=== PATIENT | female | born 2000 | race Caucasian/White ===

== ENCOUNTER 2021-03-20 09:43 | Emergency (ER) | payer OTHER ==
--- NOTE | 2021-03-20 10:01 | ED Physician Documentation ---
PD HPI ABD PAIN - Stated complaint Stated Complaint: ABDOMINAL PX - Chief complaint Chief Complaint: Abd Pain - History obtained from History obtained from: Patient - History of Present Illness Timing - onset: How many weeks ago (1) Timing - duration: Weeks (1) Timing - details: Abrupt onset, Still present, Waxing and waning Quality: Cramping, Aching, Pain Location: Epigastric, LUQ Radiation: No: Chest, Lower back, Left flank Improved by: No: Eating, BM Worsened by: Eating Associated symptoms: Nausea, Diarrhea (had diarrhea a week ago and then again last night. Formed stool couple of times in the interim. No noted blood nor melena.), Loss of appetite (the past week). No: Fever, Vomiting, Melena, Dysuria Similar symptoms before: Has not had sx before Recently seen: Not recently seen Review of Systems Constitutional: reports: Myalgias (some aches and joint pains generally the past week. No URI symptoms.). denies: Fever, Chills Nose: denies: Congestion Throat: denies: Sore throat Respiratory: denies: Cough GI: reports: Abdominal Pain, Nausea, Diarrhea. denies: Vomiting, Constipation, Hematemesis, Bloody / black stool : denies: Dysuria, Discharge, Irregular menses Skin: denies: Rash, Lesions Neurologic: reports: Generalized weakness. denies: Near syncope, Altered mental status, Headache PD PAST MEDICAL HISTORY - Past Medical History Cardiovascular: None Respiratory: None Endocrine/Autoimmune: None GI: None - Present Medications Home Medications: Ambulatory Orders Medication Instructions Recorded Confirmed HYDROcod/ACETAM 5/325 [[place] 5/325] 1 ea PO Q6H PRN #12 tablet 03/20/21 Loperamide [Imodium] 2 mg PO QID PRN #12 cap 03/20/21 Ondansetron Odt [Zofran] 4 mg TL Q6H PRN #10 tablet 03/20/21 - Allergies Allergies/Adverse Reactions: Allergies Allergy/AdvReac Type Severity Reaction Status Date / Time No Known Drug Allergies Allergy Verified 03/20/21 09:51 PD ED PE NORMAL - Vitals Vital signs reviewed: Yes - General General: Alert and oriented X 3, No acute distress, Well developed/nourished - HEENT HEENT: Pharynx benign. No: Moist mucous membranes - Neck Neck: Supple, no meningeal sign, No adenopathy - Cardiac Cardiac: RRR, No murmur - Respiratory Respiratory: Clear bilaterally - Abdomen Abdomen: Normal bowel sounds, Soft, Non distended, No organomegaly, Other (tender left upper to mid abdomen. Not tender lower abd. No percussion tenderness. ) - Female Female : Deferred - Rectal Rectal: Deferred - Back Back: No CVA TTP - Derm Derm: Normal color, Warm and dry - Extremities Extremities: No edema - Neuro Neuro: Alert and oriented X 3, No motor deficit, Normal speech Results - Vitals Vitals: Vital Signs - 24 hr 03/20/21 03/20/21 09:51 11:53 Temperature 36.7 C Heart Rate 95 79 Respiratory 18 17 Rate Blood Pressure 131/71 H 123/81 H O2 Saturation 99 100 Oxygen O2 Source Room air - Labs Labs: Laboratory Tests 03/20/21 03/20/21 03/20/21 10:00 10:00 10:00 WBC 6.4 RBC 4.91 Hgb 15.5 Hct 44.8 MCV 91.2 MCH 31.6 H MCHC 34.6 RDW 12.9 Plt Count 303 MPV 8.6 Neut # (Auto) 4.3 Lymph # (Auto) 1.6 [place] # (Auto) 0.4 Eos # (Auto) 0.1 Baso # (Auto) 0.0 Absolute Nucleated RBC 0.00 Nucleated RBC % 0.0 Sodium 135 Potassium 3.9 Chloride 104 Carbon Dioxide 21 Anion Gap 10.0 BUN 12 Creatinine 0.6 Estimated GFR (MDRD) 126 Glucose 97 Calcium 9.3 Total Bilirubin 0.8 AST 30 ALT 24 Alkaline Phosphatase 79 Total Protein 8.1 Albumin 4.9 Globulin 3.2 Albumin/Globulin Ratio 1.5 Lipase 44 Urine Color STRAW Urine Clarity CLEAR Urine pH 6.0 Ur Specific [place] <=1.005 Urine Protein NEGATIVE Urine Glucose (UA) NEGATIVE Urine Ketones NEGATIVE Urine Occult Blood SMALL H Urine Nitrite NEGATIVE Urine Bilirubin NEGATIVE Urine Urobilinogen 0.2 (NORMAL) Ur Leukocyte Esterase NEGATIVE Urine RBC 6-10 H Urine WBC 0-3 Ur Squamous Epith Cells MOD Squamous H Urine Bacteria Moderate H Ur Microscopic Review INDICATED Urine Culture Comments NOT INDICATED Urine HCG, Qual 03/20/21 10:04 WBC RBC Hgb Hct MCV MCH MCHC RDW Plt Count MPV Neut # (Auto) Lymph # (Auto) [place] # (Auto) Eos # (Auto) Baso # (Auto) Absolute Nucleated RBC Nucleated RBC % Sodium Potassium Chloride Carbon Dioxide Anion Gap BUN Creatinine Estimated GFR (MDRD) Glucose Calcium Total Bilirubin AST ALT Alkaline Phosphatase Total Protein Albumin Globulin Albumin/Globulin Ratio Lipase Urine Color Urine Clarity Urine pH Ur Specific [place] Urine Protein Urine Glucose (UA) Urine Ketones Urine Occult Blood Urine Nitrite Urine Bilirubin Urine Urobilinogen Ur Leukocyte Esterase Urine RBC Urine WBC Ur Squamous Epith Cells Urine Bacteria Ur Microscopic Review Urine Culture Comments Urine HCG, Qual NEGATIVE - Rads (name of study) abd/pelvic CT Radiology: Prelim report reviewed (no evidence of acute abdominal process. ), See rad report PD MEDICAL DECISION MAKING - ED course Complexity details: reviewed results, re-evaluated patient, considered differential (not tender in appendix area nor RUQ. Sounds intenstinal. No dysuria. Can check labs and UA, but also stool sample if goes here. Will get CT abd. Meanwhile to give fluids and meds. ), d/w patient Departure - Departure Disposition: Home, Self Care Clinical Impression: Abdominal pain Qualifiers: Abdominal location: left upper quadrant Qualified Code(s): R10.12 - Left upper quadrant pain Condition: Stable Record reviewed to determine appropriate education?: Yes Instructions: Abdominal Pain Follow-Up: TEMO BUSH DO [Primary Care Provider] - Prescriptions: Loperamide [Imodium] 2 mg PO QID PRN #12 cap PRN Reason: Diarrhea HYDROcod/ACETAM 5/325 [[place] 5/325] 1 ea PO Q6H PRN #12 tablet PRN Reason: Pain Ondansetron Odt [Zofran] 4 mg TL Q6H PRN #10 tablet PRN Reason: Nausea / Vomiting Comments: Off work and rest with small frequent fluids and bland food today and tomorrow. Ondansetron if needed for nausea, Imodium if needed for diarrhea. Tylenol ibuprofen if needed for pains. Add pain medicine if needed for worse pain at times. Your CT scan and labs do not show any acute localized process. Presume some viral type illness causing your symptoms. The stool culture will result in a day or 2 and will call you if there is any bacterial infection that needs particular treatment. Return check with your primary care if not improved in the next couple of days. [facility] I am prescribing a short course of narcotic pain medication for you. These are potentially dangerous and addictive medications that should be used carefully. These medications may constipate you. Take an [id number] stool softener such as docusate twice daily with plenty of water while taking these medications. If you go 24 hours without a bowel movement, take [id number] MiraLAX, per package instructions. Do not drink or drive while taking these medications. If you received narcotic or sedating medications while in the emergency department do not drive for 24 hours. Store this medication in a safe, secure place and out of reach of children. It is a violation of federal law to give or sell this medication to another person or to use in a manner other than prescribed. The ED will not refill narcotic prescriptions, including prescriptions lost or stolen. You can dispose of unwanted medications at the [facility]'s office or at several pharmacies such as [facility]. Forms: Activity restrictions Discharge Date/Time: 03/20/21 12:30
[2021-03-20 10:15] LABS: BASOPHILS % (AUTO) 0.5 %; EOSINOPHILS # (AUTO) 0.1 10^3/uL (0.0-0.7); EOSINOPHILS % (AUTO) 0.8 %; HCT - HEMATOCRIT 44.8 % (37.0-47.0); HGB - HEMOGLOBIN 15.5 g/dL (12.0-16.0); LYMPHOCYTES # (AUTO) 1.6 10^3/uL (1.5-3.5); LYMPHOCYTES % (AUTO) 24.6 %; MEAN CORPUSCULAR HEMOGLOBIN 31.6 pg (27.0-31.0); MEAN CORPUSCULAR HGB CONC 34.6 g/dL (32.0-36.0); MEAN CORPUSCULAR VOLUME 91.2 fL (81.0-99.0); MEAN PLATELET VOLUME 8.6 fL (7.9-10.8); MONOCYTES # (AUTO) 0.4 10^3/uL (0.0-1.0); MONOCYTES % (AUTO) 6.4 %; NEUTROPHILS # (AUTO) 4.3 10^3/uL (1.5-6.6); NEUTROPHILS % (AUTO) 67.2 %; PLT - PLATELET COUNT 303 10^3/uL (130-450); RED BLOOD COUNT 4.91 10^6/uL (4.20-5.40); RED CELL DISTRIBUTION WIDTH 12.9 % (12.0-15.0); WHITE BLOOD COUNT 6.4 x10^3/uL (4.8-10.8)
[2021-03-20 10:17] LABS: BILIRUBIN,URINE NEGATIVE (NEGATIVE); GLUCOSE, URINE (UA) NEGATIVE (NEGATIVE); KETONES,URINE (UA) NEGATIVE (NEGATIVE); LEUKOCYTE ESTERASE, URINE NEGATIVE (NEGATIVE); NITRITE,URINE NEGATIVE (NEGATIVE); OCCULT BLOOD,URINE SMALL (NEGATIVE); PROTEIN,URINE NEGATIVE (NEGATIVE); UROBILINOGEN,URINE 0.2 (NORMAL) E.U./dL (NORMAL)
[2021-03-20 10:21] LABS: HCG UR QUAL NEGATIVE
[2021-03-20 10:22] LABS: CLARITY,URINE CLEAR (CLEAR)
[2021-03-20] MEDS ORDERED: KETOROLAC 15 MG/ML VIAL IVP STA (10:25)
[2021-03-20] MEDS ORDERED: ONDANSETRON 4 MG/2 ML VIAL IVP STA (10:25)
[2021-03-20] MEDS ORDERED: SODIUM CHLORIDE 0.9% 1,000 ML IV STA (10:25)
[2021-03-20 10:26] LABS: ALBUMIN 4.9 g/dL (3.2-5.5); ALBUMIN/GLOBULIN RATIO 1.5 (1.0-2.2); BILIRUBIN,TOTAL 0.8 mg/dL (0.2-1.0); CALCIUM 9.3 mg/dL (8.5-10.3); CREATININE 0.6 mg/dL (0.4-1.0); POTASSIUM 3.9 mmol/L (3.5-5.0); TOTAL PROTEIN 8.1 g/dL (6.7-8.2)
[2021-03-20 10:28] LABS: BACTERIA,URINE Moderate /HPF (None Seen); SQUAMOUS EPITHELIAL CELL,UR MOD Squamous (<= Few); WBC,URINE 0-3 /HPF (0-5)
[2021-03-20] MEDS ORDERED: IOVERSOL 320 100 ML VIAL IVP ONE ×2 (10:42→13:13)
--- NOTE | 2021-03-20 11:17 | CT Report ---
PROCEDURE: Abdomen/Pelvis W INDICATIONS: left abd pain for a week CONTRAST: IV CONTRAST: Optiray 320 ml: 80 PO CONTRAST: *NO PO CONTRAST TECHNIQUE: After the administration of intravenous contrast, 5 mm thick sections acquired from the diaphragms to the symphysis. 5 mm thick coronal and sagittal reformats were acquired. For radiation dose reducti on, the following was used: automated exposure control, adjustment of mA and/or kV according to marilee ent size. COMPARISON: None. FINDINGS: Image quality: Excellent. ABDOMEN: Lung bases: Lung bases are clear. Heart size is normal. Solid organs: Liver and spleen are normal in size and enhancement. Gallbladder is unremarkable. Bi liary system is non dilated. Pancreas enhances normally. No adrenal nodules. Kidneys demonstrate n ormal size and enhancement, without hydronephrosis. Peritoneum and bowel: Bowel loops demonstrate normal wall thickness and caliber. No free fluid or a ir. Nodes and vessels: No retroperitoneal or mesenteric adenopathy by size criteria. Aorta and inferior vena cava are normal in size. Miscellaneous: No ventral hernias. PELVIS: Genitourinary: Bladder wall thickness is normal. Miscellaneous: No inguinal hernias or adenopathy. Bones: No suspicious bony lesions. No vertebral body compression fractures. IMPRESSION: 1. No evidence of acute abdominal process. Reviewed by: Aquiles Mayorga MD on 03/20/2021 11:15 AM [facility] Approved by: Aquiles Mayorga MD on 03/20/2021 11:15 AM PST Station ID: [id number]
[2021-03-20] MEDS ORDERED: MORPHINE 2 MG/ML CARPUJECT IVP STA (11:47)
[2021-03-20 11:57] VITALS: BP 123/81
== END 2021-03-20 12:30 | disposition home or self-care (01) ==
LOC: ED 09:43
DX: R10.12 Left upper quadrant pain (principal); R19.7 Diarrhea, unspecified; R11.0 Nausea; R53.1 Weakness
CPT/HCPCS: 36415; 74177; 80053; 81001; 81025; 81599; 83690; 85025; 96374; 96375; 99283; 99284; Q9967; 81003; 87045; 87046; 87086; 87493

== ENCOUNTER 2021-07-18 20:43 | Outpatient (CLI) | payer OTHER | END 2021-07-18 20:44 | disposition critical access hospital (66) | LOC: EMS 20:43 | DX: R07.89 Other chest pain (principal); R21 Rash and other nonspecific skin eruption | CPT/HCPCS: A0425; A0429 ==

== ENCOUNTER 2021-07-18 21:06 | Emergency (ER) | payer OTHER ==
--- NOTE | 2021-07-18 22:19 | ED Physician Documentation ---
PD HPI CHEST PAIN - Stated complaint Stated Complaint: CHEST PX - Chief complaint Chief Complaint: Cardiac - History obtained from History obtained from: Patient - History of Present Illness Timing - onset: How many weeks ago (1) Timing - details: Gradual onset, Constant Pain level now: 3 Improved by: Rest Worsened by: Other (no exacerbating factors) Associated symptoms: Shortness of air, Palpitations. No: Diaphoresis, Nausea, Vomiting, Cough Similar symptoms before: Has not had sx before Recently seen: Not recently seen - Additional information Additional information: c/o one week of rapid palpitations (chief complaint) associated with dyspnea, chills but no fever or sweats, and midline chest discomfort. Tonight she also had episode of lightheadedness while ambulating but her description is not that of near syncope. denies h/o similar symptoms. Review of Systems Constitutional: reports: Chills. denies: Fever, Fatigue, Sweats Cardiac: reports: Chest pain / pressure, Palpitations. denies: Pedal edema, Calf pain GI: reports: Reviewed and negative : denies: Dysuria, Frequency, Now EGA PD PAST MEDICAL HISTORY - Past Medical History Cardiovascular: None Respiratory: None Endocrine/Autoimmune: None GI: None - Past Surgical History Past Surgical History: No - Present Medications Home Medications: Ambulatory Orders Medication Instructions Recorded Confirmed No Known Home Medications 07/19/21 07/19/21 - Allergies Allergies/Adverse Reactions: Allergies Allergy/AdvReac Type Severity Reaction Status Date / Time No Known Drug Allergies Allergy Verified 07/19/21 00:33 - Social History Does the pt smoke?: No Smoking Status: Never smoker Does the pt drink ETOH?: No Does the pt have substance abuse?: No - Immunizations Immunizations are current?: No - POLST Patient has POLST: No PD ED PE NORMAL - Vitals Vital signs reviewed: Yes - General General: Alert and oriented X 3, No acute distress, Well developed/nourished - Cardiac Cardiac: RRR, No murmur, No gallop, No rub - Respiratory Respiratory: No respiratory distress, Clear bilaterally - Abdomen Abdomen: Soft, Non tender Results - Vitals Vitals: Oxygen O2 Source Room air - EKG (time done) No standard instances Rate: Rate (enter#) (93) Rhythm: NSR [place]: Normal Intervals: Normal LA QRS: Normal Ischemia: Normal ST segments Other comments: Other comments (PVC) - Labs Labs: Laboratory Tests 07/18/21 07/18/21 23:14 23:14 WBC 5.5 RBC 4.52 Hgb 14.1 Hct 40.3 MCV 89.2 MCH 31.2 H MCHC 35.0 RDW 12.7 Plt Count 300 MPV 8.5 Neut # (Auto) 2.6 Lymph # (Auto) 2.3 [place] # (Auto) 0.4 Eos # (Auto) 0.1 Baso # (Auto) 0.0 Absolute Nucleated RBC 0.00 Nucleated RBC % 0.0 Sodium 137 Potassium 3.6 Chloride 106 Carbon Dioxide 21 Anion Gap 10.0 BUN 13 Creatinine 0.5 Estimated GFR (MDRD) 156 Glucose 92 Calcium 9.4 Total Bilirubin 0.7 AST 22 ALT 19 Alkaline Phosphatase 67 Total Protein 7.5 Albumin 4.5 Globulin 3.0 Albumin/Globulin Ratio 1.5 Lipase 39 - Rads (name of study) chest xray Radiology: Prelim report reviewed, See rad report PD MEDICAL DECISION MAKING - ED course Complexity details: reviewed results, re-evaluated patient, considered differential, d/w patient ED course: normal CBC, ER abdominal panel, EKG, and CXR. Vital signs stable, PERC negative . No further emergent testing indicated at this time. Results d/w patient and it was discussed that a diagnosis has not been achieved on these tests. Follow up with primary care provider for reevaluation and, and their discretion , further tests if indicated. Return precautions also discussed. Departure - Departure Disposition: 01 Home, Self Care Clinical Impression: Chest pain Qualifiers: Chest pain type: unspecified Qualified Code(s): R07.9 - Chest pain, unspecified Condition: Good Instructions: ED Chest Pain Atypical Unkn Cause Comments: As we discussed, the cause of your chest pain is not clear, based on tonight's tests. Your EKG, chest xray, and blood tests are all unremarkable. Follow up with your primary care provider for reevaluation, return to the emergency department if your symptoms worsen. Discharge Date/Time: 07/19/21 01:49
[2021-07-18 23:20] LABS: BASOPHILS % (AUTO) 0.6 %; EOSINOPHILS # (AUTO) 0.1 10^3/uL (0.0-0.7); EOSINOPHILS % (AUTO) 1.8 %; HCT - HEMATOCRIT 40.3 % (37.0-47.0); HGB - HEMOGLOBIN 14.1 g/dL (12.0-16.0); LYMPHOCYTES # (AUTO) 2.3 10^3/uL (1.5-3.5); LYMPHOCYTES % (AUTO) 42.9 %; MEAN CORPUSCULAR HEMOGLOBIN 31.2 pg (27.0-31.0); MEAN CORPUSCULAR VOLUME 89.2 fL (81.0-99.0); MEAN PLATELET VOLUME 8.5 fL (7.9-10.8); MONOCYTES # (AUTO) 0.4 10^3/uL (0.0-1.0); MONOCYTES % (AUTO) 7.5 %; NEUTROPHILS # (AUTO) 2.6 10^3/uL (1.5-6.6); PLT - PLATELET COUNT 300 10^3/uL (130-450); RED BLOOD COUNT 4.52 10^6/uL (4.20-5.40); RED CELL DISTRIBUTION WIDTH 12.7 % (12.0-15.0); WHITE BLOOD COUNT 5.5 x10^3/uL (4.8-10.8)
[2021-07-18 23:32] LABS: ALBUMIN 4.5 g/dL (3.2-5.5); ALBUMIN/GLOBULIN RATIO 1.5 (1.0-2.2); BILIRUBIN,TOTAL 0.7 mg/dL (0.2-1.0); CALCIUM 9.4 mg/dL (8.5-10.3); CREATININE 0.5 mg/dL (0.4-1.0); POTASSIUM 3.6 mmol/L (3.5-5.0); TOTAL PROTEIN 7.5 g/dL (6.7-8.2)
--- NOTE | 2021-07-19 01:22 | XRAY Report ---
PROCEDURE: Chest 2 View X-Ray INDICATIONS: chest pain TECHNIQUE: 2 view(s) of the chest. COMPARISON: None. FINDINGS: Surgical changes and devices: None. Lungs and pleura: No pleural effusions or pneumothorax. Lungs are clear. Mediastinum: Mediastinal contours are normal. Heart size is normal. Bones and chest wall: No suspicious bony abnormalities. Soft tissues appear unremarkable. IMPRESSION: No acute cardiopulmonary disease process. Reviewed by: Beti Logan MD, PhD on 07/19/2021 1:21 AM PDT Approved by: Beti Logan MD, PhD on 07/19/2021 1:21 AM PDT Station ID: [id number]
[2021-07-19 01:50] VITALS: BP 111/69
== END 2021-07-19 01:49 | disposition home or self-care (01) ==
LOC: EDUNIT# → ED 21:06
DX: R07.9 Chest pain, unspecified (principal)
CPT/HCPCS: 36415; 80053; 83690; 85025; 93005; 99283; 99284

== ENCOUNTER 2022-07-14 08:05 | Emergency (ER) | payer OTHER ==
--- NOTE | 2022-07-14 08:19 | ED Physician Documentation ---
PD HPI URI - Stated complaint Stated Complaint: FATIGUE,NAUSEA,FEVER - Chief complaint Chief Complaint: Heent - History obtained from History obtained from: Patient - History of Present Illness Timing - onset: How many weeks ago (1-2 weeks of tired, easy fatigue, nausea, and now 2 days of sore throat and feverish feeling. she is 1-2 weeks late on her menses that are usually very regular.) Timing duration: Weeks (1-2) Timing details: Gradual onset, Still present Associated symptoms: Chills, Sore throat, NVD (nausea but no vomiting). No: Nasal congestion, Dry cough, Chest pain, Dyspnea Contributing factors: No: Sick contact, Travel Improves by: Rest Worsened by: Activity Similar symptoms before: Has not had sx before Recently seen: Not recently seen Review of Systems Constitutional: reports: Chills, Myalgias Nose: denies: Rhinorrhea / runny nose, Congestion Throat: reports: Sore throat Respiratory: denies: Cough GI: reports: Nausea. denies: Abdominal Pain, Vomiting, Diarrhea : reports: Missed period. 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 No follow up that she recalls since desk maker. No verbal reports to the patient of murmur on prior exams through Medical eval/Basic training/ etc. ) Endocrine/Autoimmune: None GI: None - Past Surgical History Past Surgical History: No - Present Medications Home Medications: Ambulatory Orders Medication Instructions Recorded Confirmed Doxylamine Succinate [Unisom] 25 mg PO Q8H PRN #30 tablet 07/14/22 Ondansetron Odt [Zofran] 4 mg TL Q6H PRN #30 tablet 07/14/22 Pnv No.95/Ferrous Fum/Folic AC 1 each PO DAILY 30 Days #30 tablet 07/14/22 [ Tablet] Pyridoxine HCl (Vitamin B6) 25 mg PO BID #60 tablet 07/14/22 [Vitamin B-6] - Allergies Allergies/Adverse Reactions: Allergies Allergy/AdvReac Type Severity Reaction Status Date / Time No Known Drug Allergies Allergy Verified 07/14/22 08:13 - Social History Does the pt smoke?: No Smoking Status: Never smoker Does the pt drink ETOH?: No Does the pt have substance abuse?: No - Immunizations Immunizations are current?: No - POLST Patient has POLST: No PD ED PE NORMAL - Vitals Vital signs reviewed: Yes - General General: Alert and oriented X 3, No acute distress, Well developed/nourished - HEENT HEENT: Ears normal, Moist mucous membranes. No: Pharynx benign (some redness and swelling of tonsils without exudate. Mild anterior neck adenopathy. ) - Cardiac Cardiac: RRR, Other (3/6 systolic murmur left sternal border without radiation to the neck; does radiate to the back. Consider pulmonary stenosis but needs ECHO to eval. ) Results - Vitals Vitals: Vital Signs - 24 hr 07/14/22 07/14/22 08:10 12:10 Temperature 36.9 C Heart Rate 109 H 86 Respiratory 20 16 Rate Blood Pressure 149/71 H 148/69 H O2 Saturation 97 99 Oxygen O2 Source Room air - Labs Labs: Laboratory Tests 07/14/22 07/14/22 07/14/22 08:44 08:44 08:44 HCG, Quant Urine Color LIGHT YELLOW Urine Clarity HAZY Urine pH 7.0 Ur Specific [place] <=1.005 Urine Protein NEGATIVE Urine Glucose (UA) NEGATIVE Urine Ketones NEGATIVE Urine Occult Blood SMALL H Urine Nitrite NEGATIVE Urine Bilirubin NEGATIVE Urine Urobilinogen 0.2 (NORMAL) Ur Leukocyte Esterase NEGATIVE Urine RBC 0-5 Urine WBC 0-3 Ur Squamous Epith Cells MOD Squamous H Urine Bacteria Few Ur Microscopic Review INDICATED Urine Culture Comments NOT INDICATED Urine HCG, Qual POSITIVE Nasal Adenovirus (PCR) NOT DETECTED Nasal B. parapertussis DNA (PCR) NOT DETECTED Nasal Coronavir 229E PCR NOT DETECTED Nasal Coronavir HKU1 PCR NOT DETECTED Nasal Coronavir NL63 PCR NOT DETECTED Nasal Coronavir OC43 PCR NOT DETECTED Nasal Enterovir/Rhinovir PCR NOT DETECTED Nasal Influenza B PCR NOT DETECTED Nasal Influenza A PCR NOT DETECTED Nasal Parainfluen 1 PCR NOT DETECTED Nasal Parainfluen 2 PCR NOT DETECTED Nasal Parainfluen 3 PCR NOT DETECTED Nasal Parainfluen 4 PCR NOT DETECTED Nasal RSV (PCR) NOT DETECTED Nasal B.pertussis DNA PCR NOT DETECTED Nasal C.pneumoniae (PCR) NOT DETECTED Daryl Human Metapneumo PCR NOT DETECTED Nasal M.pneumoniae (PCR) NOT DETECTED Nasal SARS-CoV-2 (PCR) NOT DETECTED Group A Strep Rapid Negative 07/14/22 09:22 HCG, Quant 86461.00 Urine Color Urine Clarity Urine pH Ur Specific [place] Urine Protein Urine Glucose (UA) Urine Ketones Urine Occult Blood Urine Nitrite Urine Bilirubin Urine Urobilinogen Ur Leukocyte Esterase Urine RBC Urine WBC Ur Squamous Epith Cells Urine Bacteria Ur Microscopic Review Urine Culture Comments Urine HCG, Qual Nasal Adenovirus (PCR) Nasal B. parapertussis DNA (PCR) Nasal Coronavir 229E PCR Nasal Coronavir HKU1 PCR Nasal Coronavir NL63 PCR Nasal Coronavir OC43 PCR Nasal Enterovir/Rhinovir PCR Nasal Influenza B PCR Nasal Influenza A PCR Nasal Parainfluen 1 PCR Nasal Parainfluen 2 PCR Nasal Parainfluen 3 PCR Nasal Parainfluen 4 PCR Nasal RSV (PCR) Nasal B.pertussis DNA PCR Nasal C.pneumoniae (PCR) Daryl Human Metapneumo PCR Nasal M.pneumoniae (PCR) Nasal SARS-CoV-2 (PCR) Group A Strep Rapid - Rads (name of study) OB U/S Relevant Findings:: Prelim report reviewed (IUP of 5-6 week size gestational sac and yolk sac. No visible heart beat/fetus, likely due to early dates.), See rad report PD Medical Decision Making - ED course Complexity details: considered differential (has had fatigue and nausea and is late for period. Consider . Also with sore throat and feverish the past 2 days. Consider URI. ), d/w patient Reviewed Lab Results: positive test, so will get Quant HCG and U/S since having some cramps. U/S showed IUP about 5-6 weeks without visible heart beat at this time, but presume too early. Will need to have repeat HCG testing done in few days. I did verbally convey this to the patient. She does have a prominent heart murmur and does not recall this being noted on prior exams. She states she had heart surgery as /, but no reall follow up since very young child. ED course: early with low quant and IUP without fHB presume too early. Needs repeat hcg in 3 days or so to establish true viability. can treat symptoms. Has some uri symptoms too with sore throat/feverish. strep test is negative. Centor 2, so will await results of culture. I do hear a prominent heart murmur that should get followed up and likely ECHO to assess, especially with the early in case is something that would be affected by increased blood volume of later . Departure - Departure Disposition: 01 Home, Self Care Clinical Impression: Heart murmur, , Fatigue, Pelvic cramping, Upper respiratory infection Condition: Stable Record reviewed to determine appropriate education?: Yes Instructions: ED Preg Established Normal Sxs Follow-Up: ZHENG GARCIA MD [Primary Care Provider] - Prescriptions: Pnv No.95/Ferrous Fum/Folic AC [ Tablet] 1 each PO DAILY 30 Days #30 tablet Doxylamine Succinate [Unisom] 25 mg PO Q8H PRN #30 tablet PRN Reason: Nausea / Vomiting Pyridoxine HCl (Vitamin B6) [Vitamin B-6] 25 mg PO BID #60 tablet Ondansetron Odt [Zofran] 4 mg TL Q6H PRN #30 tablet PRN Reason: Nausea / Vomiting Comments: Your test is positive. Your ultrasound shows an intrauterine at approximately 5 to 6 weeks gestation. The appearance is normal at this point. However there is not a visible heart beat presume due to early gestational age. Recommend repeat HCG testing in 3 days. Your basic urine test is normal without any signs of infection. Your rapid strep test is negative as well. Presume your fatigue and such as from the early as is your nausea. However would not really account for sore throat and body aches etc. It may be that you are developing a viral illness in addition. The viral respiratory panel is negative so at least not a lot larger viruses. It would be negative for COVID, flu, RSV, metapneumovirus and a few others. It does not account for all viral illnesses so you may still develop some sore throat, congestion, cough over the next several days. Tylenol or ibuprofen are fine in . Try to stay well-hydrated. I do hear a heart murmur. This may be something its been present for a long time. However it is prominent enough that it likely deserves follow-up and I would suggest a ultrasound of the heart to ensure its not a significant murmur. This can get ordered through your primary care. I sent prescriptions for medication for nausea including vitamin B6, Zofran, doxylamine as well as vitamins to the [facility] pharmacy. Follow-up with your primary care. Forms: Activity restrictions Discharge Date/Time: 07/14/22 12:11
[2022-07-14] MEDS ORDERED: ONDANSETRON ODT 4 MG TABLET TL STA (08:33)
[2022-07-14 08:58] LABS: BILIRUBIN,URINE NEGATIVE (NEGATIVE); GLUCOSE, URINE (UA) NEGATIVE (NEGATIVE); KETONES,URINE (UA) NEGATIVE (NEGATIVE); LEUKOCYTE ESTERASE, URINE NEGATIVE (NEGATIVE); NITRITE,URINE NEGATIVE (NEGATIVE); OCCULT BLOOD,URINE SMALL (NEGATIVE); PROTEIN,URINE NEGATIVE (NEGATIVE); UROBILINOGEN,URINE 0.2 (NORMAL) E.U./dL (NORMAL)
[2022-07-14 09:02] LABS: CLARITY,URINE HAZY (CLEAR); HCG UR QUAL POSITIVE
[2022-07-14 09:09] LABS: RAPID STREP SCREEN Negative (Negative)
[2022-07-14 09:14] LABS: BACTERIA,URINE Few /HPF (None Seen); RBC,URINE 0-5 /HPF (0-5); SQUAMOUS EPITHELIAL CELL,UR MOD Squamous (<= Few); WBC,URINE 0-3 /HPF (0-5)
[2022-07-14 10:32] LABS: B. PARAPERTUSSIS- RESP PCR PAN NOT DETECTED; B. PERTUSSIS- RESP PCR PANEL NOT DETECTED; C. PNEUMONIAE- RESP PCR PANEL NOT DETECTED; CORONAVIRUS 229E-RESP PCR NOT DETECTED; CORONAVIRUS HKU1-RESP PCR NOT DETECTED; CORONAVIRUS NL63-RESP PCR NOT DETECTED; CORONAVIRUS OC43-RESP PCR NOT DETECTED; HUMAN METAPNEUMOVIRUS NOT DETECTED; INFLUENZA A- RESP PCR PANEL NOT DETECTED; INFLUENZA B - RESP PCR PANEL NOT DETECTED; M. PNEUMONIAE- RESP PCR PANEL NOT DETECTED; PARAINFLUENZA VIRUS 1 NOT DETECTED; PARAINFLUENZA VIRUS 2 NOT DETECTED; PARAINFLUENZA VIRUS 3 NOT DETECTED; PARAINFLUENZA VIRUS 4 NOT DETECTED; RHINOVIRUS/ENTEROVIRUS NOT DETECTED; RSV- RESP PCR PANEL NOT DETECTED; SARS-CoV-2 -RESP PCR PANEL NOT DETECTED
--- NOTE | 2022-07-14 11:34 | Ultrasound Report ---
PROCEDURE: OB First Trimester INDICATIONS: early preg/ cramps OUTSIDE/PRIOR DATING DATA: Last menstrual period (LMP): 06/04/2022. LMP-based estimated date of delivery (OMAYRA): 03/11/2023. First dating scan (date and location): Today's exam. Estimated date of delivery (OMAYRA) from first dating scan: 03/11/2023. The below data below was generated using the clinical OMAYRA of 03/11/2023 TECHNIQUE: Real-time scanning was performed of the fetus and maternal pelvic organs, with image documentation. COMPARISON: None FINDINGS: Embryo: Intrauterine gestational sac present, measuring 0.9 cm, corresponding to 5 weeks 5 days. [employer] wn-rump length not seen. Yolk sac is present. Heart rate: Undetected. Measurement variability in dating: +/- 4 weeks by LMP, +/- 7 days by mean sac diameter (use before 6 weeks gestation if crown-rump length not able to be measured), +/- 5 days by crown-rump length (6-12 weeks gestation). Maternal organs: Ovaries are unremarkable. IMPRESSION: Intrauterine gestational sac with yolk sac but without observable fetus. The sac measures 0.9 cm, cor responding to dating of 5 weeks 5 days, with OMAYRA of 03/11/2023. Findings are concordant with dating by LMP. Together, findings probably represent early gestational . Reviewed by: Carlos Hayward on 07/14/2022 11:32 AM PDT Approved by: Carlos Hayward on 07/14/2022 11:32 AM PDT Station ID: [id number]
[2022-07-14 12:11] VITALS: BP 148/69
== END 2022-07-14 12:11 | disposition home or self-care (01) ==
LOC: ED 08:05
DX: O99.511 Diseases of the respiratory system complicating pregnancy, first trimester (principal); O26.891 Other specified pregnancy related conditions, first trimester; R10.2 Pelvic and perineal pain; R01.1 Cardiac murmur, unspecified; Z3A.01 Less than 8 weeks gestation of pregnancy; Z20.822 Contact with and (suspected) exposure to COVID-19
CPT/HCPCS: 36415; 76801; 76817; 81001; 81025; 84702; 87070; 87430; 87633; 99284; Q0162; 81003; 87086

== ENCOUNTER 2022-10-02 07:49 | Outpatient (CLI) | payer OTHER | END 2022-10-02 07:50 | disposition home or self-care (01) | LOC: DI 07:49 | PROVIDERS: ATTEND Physician Assistant | DX: R01.1 Cardiac murmur, unspecified (principal) | CPT/HCPCS: 93306 ==

== ENCOUNTER 2023-08-06 17:57 | Emergency (ER) | payer OTHER ==
[2023-08-06] MEDS: ACETAMINOPHEN 325 MG TABLET PO STA (18:44)
[2023-08-06] MEDS: CHERRY SYRUP 10 ML UDC PO ONE (18:45)
[2023-08-06] MEDS: DEXAMETHASONE 10 MG/ML VIAL PO STA (18:45)
[2023-08-06] MEDS: IBUPROFEN 200 MG/10 ML UDC PO STA (18:45)
[2023-08-06 19:01] LABS: RAPID STREP SCREEN Negative (Negative)
--- NOTE | 2023-08-06 19:25 | ED Physician Documentation ---
PD HPI HEENT - Stated complaint Stated Complaint: SWOLLEN TONSILS - Chief complaint Chief Complaint: Heent - Additional information Additional information: 23-year-old female presents emergency department for sore throat and swollen tonsils. Patient says that she actually has an appoint with an research assistant member in [place] to have her tonsils removed at the end of September she has recurrent tonsillitis and just feels like she is having a lot of throat pain and swelling today. She Has no difficulty breathing no shortness of breath she has not taken anything like Tylenol ibuprofen for any other pain or discomfort. PD PAST MEDICAL HISTORY - Past Medical History Cardiovascular: None Respiratory: Other Endocrine/Autoimmune: None GI: None - Past Surgical History Past Surgical History: No - Present Medications Home Medications: Ambulatory Orders Medication Instructions Recorded Confirmed No Known Home Medications 08/06/23 08/06/23 - Allergies Allergies/Adverse Reactions: Allergies Allergy/AdvReac Type Severity Reaction Status Date / Time No Known Drug Allergies Allergy Verified 08/06/23 18:12 - Social History Does the pt smoke?: No Smoking Status: Never smoker Does the pt drink ETOH?: No Does the pt have substance abuse?: No - Immunizations Immunizations are current?: No - POLST Patient has POLST: No PD ED PE NORMAL - Vitals Vital signs reviewed: Yes - General General: Alert and oriented X 3, No acute distress, Well developed/nourished - HEENT HEENT: Moist mucous membranes, Other (3+ bilateral tonsils) Results - Vitals Vitals: Vital Signs - 24 hr 08/06/23 08/06/23 18:07 19:56 Temperature 36.8 C Heart Rate 78 76 Respiratory 16 18 Rate Blood Pressure 124/70 126/66 O2 Saturation 100 99 Oxygen O2 Source Room air - Labs Labs: Laboratory Tests 08/06/23 18:33 Group A Strep Rapid Negative PD Medical Decision Making - ED course ED course: No history of immunocompromise. Nontoxic appearance. Patient euvolemic with no trismus. No airway compromise. No change in voice, exudates, enlarged lymph nodes. Able to tolerate PO. 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 Rapid group A strep was negative. She was given dexamethasone, Tylenol, liquid ibuprofen to help with the throat pain which patient does report significant alleviation of pain. Throat swab was sent for culture she was informed that we will call her in a few days with the iain rodriguez if she needs to start antibiotics. Patient was told to follow-up with her research assistant member about today's ER visit and she was given ER return precautions. Departure - Departure Disposition: 01 Home, Self Care Clinical Impression: Sore throat Instructions: Sore Throat Comments: Thank you for trusting us with your care, we have evaluated you for your sore throat. We have completed a rapid strep swab and it came back negative. We will send strep swab for cultures and this will take 2 to 3 days to result we will call you if you need to go on antibiotics but at this point in time I do not believe it is warranted. Alternate between Tylenol ibuprofen for pain and discomfort, tea and honey is very helpful as well for sore throat as well as warm salt water gargles. Please follow-up with your research assistant member and your primary care provider to let them know about today's ER visit. Come back to the emergency department if you are noticing any change to your voice, any fevers or chills, shortness of breath, or any other concerning symptoms. Wishing you a speedy recovery. Forms: PCP List Discharge Date/Time: 08/06/23 19:56
[2023-08-06 20:03] VITALS: BP 126/66; O2SAT 99
== END 2023-08-06 19:56 | disposition home or self-care (01) ==
LOC: ED 17:57
DX: R07.0 Pain in throat (principal)
CPT/HCPCS: 87070; 87430; 99283; A9270

== ENCOUNTER 2023-09-07 12:50 | Outpatient (CLI) | payer OTHER ==
[~2023-09-07 12:50] MED LIST: GADOTERATE MEGLUMINE 7.5 MMOL/15 ML VIAL ONE
--- NOTE | 2023-09-07 15:19 | MRI Report ---
PROCEDURE: Foot RT W/WO INDICATIONS: MASS OF R FOOT CONTRAST: 11.2ml Clariscan TECHNIQUE: Noncontrast sagittal T1 spin echo and T2 fast spin echo with fat saturation, long-axis T1 spin echo a nd T2 fast spin echo with fat saturation; short-axis T1 spin echo, proton density fast spin echo, and T2 fast spin echo with fat saturation through the forefoot. Post-contrast short axis, long axis, an d sagittal T1 spin echo with fat saturation through the forefoot. FINDINGS: Masses: Correlating to the pain marker, there is a T1 hypointense, T2 heterogeneously hyperintense le addison with avid enhancement centered at the extensor tendon at the level of the distal aspect of the t hird metatarsal, measuring 2.5 x 1.2 x 3.0 cm (axial by length). At approximately the same level, the re is a T2 hyperintense, mildly enhancing lesion plantar to the third intermetatarsal space, with a c omponent insinuating within the third intermetatarsal space, measuring 2.2 x 1.0 x 2.4 cm (axially th e craniocaudal dimension). These are likely to separate lesions given differences in enhancement opal acteristics. Muscle of the forefoot is unremarkable. The visualized plantar fascia is unremarkable. The Lisfranc l igament is intact. Bones: Normal marrow signal. No acute fracture or dislocation. No osseous erosion. IMPRESSION: 2 lesions at the level of the third and fourth metatarsal head. The plantar lesion may re present a Mccabe's neuroma. The dorsal lesion centered at the extensor tendon is somewhat nonspecific and may represent a schwannoma. Recommend tissue sampling. Reviewed by: Jessica Espinosa MD on 09/07/2023 3:17 PM PDT Approved by: Jessica Espinosa MD on 09/07/2023 3:17 PM PDT Station ID: [id number]
[2023-09-07] MEDS: GADOTERATE MEGLUMINE 7.5 MMOL/15 ML VIAL IVP ONE (18:47)
== END 2023-09-07 12:51 | disposition home or self-care (01) ==
LOC: DI 12:50
PROVIDERS: ATTEND Nurse Practitioner Family
DX: M79.671 Pain in right foot (principal); R22.41 Localized swelling, mass and lump, right lower limb

== ENCOUNTER 2023-10-18 12:55 | Emergency (ER) | payer OTHER ==
[2023-10-18 13:04] VITALS: O2SAT 98
--- NOTE | 2023-10-18 13:17 | ED Physician Documentation ---
History of Present Illness - Stated complaint Stated Complaint: BODY ACHES/LENTZ/CHILLS - Chief complaint Chief Complaint: General - History obtained from History obtained from: Patient - Additonal information Additional information: The patient comes to the emergency department chief complaint of sore throat, cough, fevers, body aches for the last couple of days. She states the symptoms started yesterday morning and persisted through the night. She states she is otherwise fairly healthy. No other specific sick contacts. No other complaints at this time. 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 : None HEENT: None Psych: None Musculoskeletal: None Derm: None - Past Surgical History Past Surgical History: No - Present Medications Home Medications: Ambulatory Orders Medication Instructions Recorded Confirmed No Known Home Medications 08/06/23 10/18/23 - Allergies Allergies/Adverse Reactions: Allergies Allergy/AdvReac Type Severity Reaction Status Date / Time No Known Drug Allergies Allergy Verified 10/18/23 13:02 - Social History Does the pt smoke?: No Smoking Status: Never smoker Does the pt drink ETOH?: No Does the pt have substance abuse?: No - Immunizations Immunizations are current?: No - POLST Patient has POLST: No PD ED PE NORMAL - Vitals Vital signs reviewed: Yes - General General: Alert and oriented X 3, No acute distress, Well developed/nourished - HEENT HEENT: Atraumatic, PERRL, EOMI, Moist mucous membranes, Other (Erythematous throat, 3+ tonsils. No exudates. No asymmetry.) - Neck Neck: Supple, no meningeal sign, No adenopathy - Cardiac Cardiac: RRR, No murmur - Respiratory Respiratory: No respiratory distress, Clear bilaterally - Abdomen Abdomen: Soft, Non tender, Non distended - Derm Derm: Normal color, Warm and dry, No rash - Extremities Extremities: No deformity - Neuro Neuro: Other (Alert, grossly intact.) - Psych Psych: Normal mood, Normal affect Results - Vitals Vitals: Oxygen O2 Source Room air - Labs Labs: Microbiology 10/18/23 13:17 Group A Strep Throat Culture - Preliminary Throat Laboratory Tests 10/18/23 10/18/23 13:17 13:17 Nasal Adenovirus (PCR) NOT DETECTED Nasal B. parapertussis DNA (PCR) NOT DETECTED Nasal Coronavir 229E PCR NOT DETECTED Nasal Coronavir HKU1 PCR NOT DETECTED Nasal Coronavir NL63 PCR NOT DETECTED Nasal Coronavir OC43 PCR NOT DETECTED Nasal Enterovir/Rhinovir PCR NOT DETECTED Nasal Influenza B PCR NOT DETECTED Nasal Influenza A PCR NOT DETECTED Nasal Parainfluen 1 PCR NOT DETECTED Nasal Parainfluen 2 PCR NOT DETECTED Nasal Parainfluen 3 PCR NOT DETECTED Nasal Parainfluen 4 PCR NOT DETECTED Nasal RSV (PCR) NOT DETECTED Nasal B.pertussis DNA PCR NOT DETECTED Nasal C.pneumoniae (PCR) NOT DETECTED Daryl Human Metapneumo PCR NOT DETECTED Nasal M.pneumoniae (PCR) NOT DETECTED Nasal SARS-CoV-2 (PCR) DETECTED A Group A Strep Rapid Negative PD Medical Decision Making - ED course Complexity details: reviewed results, re-evaluated patient, considered differential, d/w patient ED course: The patient was worked up with respiratory PCR panel and strep test. She was treated symptomatically with ibuprofen and Tylenol in the emergency department. Patient strep test was negative. Her respiratory PCR panel was positive for COVID. We have discussed need for time off work on symptomatic management at home including hydration, and the usual indications for return. Departure - Departure Disposition: 01 Home, Self Care Clinical Impression: Viral syndrome Condition: Stable Instructions: ED Viral Syndrome Comments: Your strep test is negative. You most likely have in the many viruses that are going around and causing similar symptoms and a lot of people in the community. In general, these illnesses last for a week or 2 but usually begin to improve after the first few days. You should be able to go to back to work after this time. Please take ibuprofen and Tylenol as needed and get plenty of fluids to drink. You may follow-up with your primary doctor as needed. Forms: Activity restrictions Discharge Date/Time: 10/18/23 14:33
[2023-10-18] MEDS: IBUPROFEN 600 MG TABLET PO STA (13:19)
[2023-10-18] MEDS: ACETAMINOPHEN 325 MG TABLET PO STA (13:19)
[2023-10-18 13:35] LABS: RAPID STREP SCREEN Negative (Negative)
[2023-10-18 14:38] VITALS: BP 128/70
[2023-10-18 14:42] LABS: CORONAVIRUS 229E-RESP PCR NOT DETECTED; CORONAVIRUS HKU1-RESP PCR NOT DETECTED; CORONAVIRUS NL63-RESP PCR NOT DETECTED; CORONAVIRUS OC43-RESP PCR NOT DETECTED; HUMAN METAPNEUMOVIRUS NOT DETECTED; INFLUENZA A- RESP PCR PANEL NOT DETECTED; RHINOVIRUS/ENTEROVIRUS NOT DETECTED
[2023-10-18 14:43] LABS: B. PARAPERTUSSIS- RESP PCR PAN NOT DETECTED; B. PERTUSSIS- RESP PCR PANEL NOT DETECTED; C. PNEUMONIAE- RESP PCR PANEL NOT DETECTED; INFLUENZA B - RESP PCR PANEL NOT DETECTED; M. PNEUMONIAE- RESP PCR PANEL NOT DETECTED; PARAINFLUENZA VIRUS 1 NOT DETECTED; PARAINFLUENZA VIRUS 2 NOT DETECTED; PARAINFLUENZA VIRUS 3 NOT DETECTED; PARAINFLUENZA VIRUS 4 NOT DETECTED; RSV- RESP PCR PANEL NOT DETECTED
[2023-10-18 14:44] LABS: SARS-CoV-2 -RESP PCR PANEL DETECTED
--- NOTE | 2023-10-21 15:51 | ED Physician Documentation ---
ED Addendum - Addendum Addendum: 10/21/23 15:50 Patient's throat culture is positive for group C strep. She states that she still has a sore throat despite finishing penicillin approximately a week ago. Therefore we will trial her on Keflex. Will have her follow-up with her doctor for further care. Keflex is sent to her preferred pharmacy. Departure - Departure Disposition: 01 Home, Self Care Clinical Impression: Viral syndrome, Strep pharyngitis Condition: Stable Instructions: ED Viral Syndrome Prescriptions: cephALEXin [Keflex] 500 mg PO Q6H #40 cap Comments: Your strep test is negative. You most likely have in the many viruses that are going around and causing similar symptoms and a lot of people in the community. In general, these illnesses last for a week or 2 but usually begin to improve after the first few days. You should be able to go to back to work after this time. Please take ibuprofen and Tylenol as needed and get plenty of fluids to drink. You may follow-up with your primary doctor as needed. Forms: Activity restrictions Discharge Date/Time: 10/18/23 14:33
== END 2023-10-18 14:33 | disposition home or self-care (01) ==
LOC: ED 12:55
DX: U07.1 COVID-19 (principal)
CPT/HCPCS: 87070; 87077; 87430; 87633; 99283; A9270

== ENCOUNTER 2024-01-11 22:23 | Emergency (ER) | payer OTHER ==
[2024-01-11 22:41] VITALS: BP 130/76; O2SAT 100
--- NOTE | 2024-01-12 00:25 | ED Physician Documentation ---
PD HPI WOUND RECHECK - Stated complaint Stated Complaint: RT FOOT INJ - Chief complaint Chief Complaint: General - Histroy obtained from History obtained from: Patient - History of Present Illness Location: Right Foot Timing - onset: How many days ago (patient with foot surgery few days ago and dressing came off, did not have materials at home. here for dressing, wound check. Here now for that. 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 : None HEENT: None Psych: None Musculoskeletal: None Derm: None - Past Surgical History Past Surgical History: No - Present Medications Home Medications: Ambulatory Orders Medication Instructions Recorded Confirmed cephALEXin [Keflex] 500 mg PO Q6H #40 cap 10/21/23 - Allergies Allergies/Adverse Reactions: Allergies Allergy/AdvReac Type Severity Reaction Status Date / Time No Known Drug Allergies Allergy Verified 01/11/24 22:26 - Social History Does the pt smoke?: No Smoking Status: Never smoker Does the pt drink ETOH?: No Does the pt have substance abuse?: No - Immunizations Immunizations are current?: No - POLST Patient has POLST: No PD ED PE NORMAL - Vitals Vital signs reviewed: Yes - General General: Alert and oriented X 3, No acute distress, Well developed/nourished - Derm Derm: Normal color, Warm and dry - Extremities Extremities: Other - Neuro Neuro: No motor deficit, No sensory deficit Results - Vitals Vitals: Oxygen O2 Source Room air PD Medical Decision Making - ED course Complexity details: considered differential (just here for dressing change to her foot. Did nothave suuplies. No signs of infection. ), d/w patient Departure - Departure Disposition: 01 Home, Self Care Clinical Impression: Dressing change or removal, surgical wound Condition: Stable Record reviewed to determine appropriate education?: Yes Comments: Your wound appears good. Follow-up with your surgeon as planned. No signs of infection at this time. Forms: PCP List Discharge Date/Time: 01/12/24 00:49
== END 2024-01-12 00:49 | disposition home or self-care (01) ==
LOC: ED 22:23
DX: Z48.01 Encounter for change or removal of surgical wound dressing (principal)
CPT/HCPCS: 99281; 99282